=== PATIENT | male | born 1970 | race Caucasian/White ===

== ENCOUNTER 2018-03-14 16:23 | Emergency (ER) | payer OTHER ==
[2018-03-14] MEDS ORDERED: NA CHLORIDE 0.9% 1,000 ML ONE ×2 (16:47→17:14)
--- NOTE | 2018-03-14 16:58 | RAD REPORT ---
EXAM DESCRIPTION: RAD - Chest Single View - 03/14/2018 4:45 pm CLINICAL HISTORY: Hypertension, chest pain. COMPARISON: None. FINDINGS: Portable technique limits examination quality. The lungs are grossly clear. The heart is normal in size. No displaced fractures. IMPRESSION: No acute intrathoracic process suspected.
[2018-03-14 17:00] LABS: Absolute Lymphocytes (CBC) 0.5 K/uL (0.7-4.9); Absolute Monocytes 0.7 K/uL (0.1-1.3); Absolute Neutrophil 12.1 K/uL (1.8-8.0); Basophils % 0.2 % (0-1.3); Eosinophils % 0.4 % (0-4.4); Hematocrit 46.8 % (39.6-49.0); Lymphocytes % 3.7 % (15.3-44.8); MCH 31.5 pg (27.0-35.0); MPV 8.2 fL (7.6-11.3); RBC Red Blood Cell Count 5.09 M/uL (4.33-5.43)
[2018-03-14 17:02] LABS: Protime INR 0.99
[2018-03-14 17:18] LABS: Blood Morphology Comment NOT SEEN (NOT SEEN); Platelet Estimate ADEQ; Potassium 4.3 mEq/L (3.6-5.0); Urine White Blood Cell Casts OK
[2018-03-14 17:25] LABS: Bilirubin Direct 0.1 mg/dL (0-0.2); Bilirubin Total 0.9 mg/dL (0.3-1.2); Protein, Total 8.1 g/dL (6.0-8.3)
--- NOTE | 2018-03-14 17:27 | RAD REPORT ---
EXAM DESCRIPTION: CT - Head Brain Wo Cont - 03/14/2018 5:19 pm CLINICAL HISTORY: Headache, hypertension and weakness. Altered consciousness. COMPARISON: None. TECHNIQUE: All CT scans are performed using dose optimization technique as appropriate and may inclu de automated exposure control or mA/KV adjustment according to patient size. FINDINGS: No intracranial hemorrhage, hydrocephalus or extra-axial fluid collection.No areas of brai n edema or evidence of midline shift. The paranasal sinuses and mastoids are clear. The calvarium is intact. IMPRESSION: No acute intracranial abnormality.
--- NOTE | 2018-03-14 17:58 | EKG ---
Test Date: 2018-03-14 Test Time: 16:45:24 Drug Regulatory Affairs Specialist: ALTHEA MEASUREMENT RESULTS: Intervals: Rate: 98 OK: 150 QRSD: 108 QT: 348 QTc: 444 [place]: P: 47 OK: 150 QRS: 83 T: 39 INTERPRETIVE STATEMENTS: Normal sinus rhythm Normal ECG Electronically Signed On 03-14-18 17:57:21 CDT by Jarred Streeter
--- NOTE | 2018-03-14 18:17 | RAD REPORT ---
EXAM DESCRIPTION: CT - Abdomen Pelvis W Contrast - 03/14/2018 6:08 pm CLINICAL HISTORY: Abdominal pain vomiting and diarrhea COMPARISON: none. TECHNIQUE: Computed axial tomography of the abdomen pelvis was obtained. 100 cc Isovue-300 was admin istered intravenously. Oral contrast was not requested which limits evaluation of bowel. All CT scans are performed using dose optimization technique as appropriate and may include automated exposure control or mA/KV adjustment according to patient size. FINDINGS: The liver has a diminished attenuation attenuation consistent with fatty infiltration. Spleen, pancreas, adrenal and kidneys appear unremarkable. There is no evidence of diverticulitis. Fluid is present within nondilated large and small bowel. The appendix is normal. Postsurgical changes of a ventral hernia repair are seen. A left inguinal hernia contains fat IMPRESSION: Fluid within nondilated large and small bowel may indicate an enteritis
[2018-03-14 18:41] LABS: Barbiturates NEGATIVE; Benzodiazepines NEGATIVE; Cocaine NEGATIVE; METHAMPHETAM NEGATIVE; Opiates NEGATIVE; Phencyclidine NEGATIVE; THC Cannibis NEGATIVE
--- NOTE | 2018-03-14 18:49 | EDPHYS ---
Physician Documentation [facility] Name: Quincy Jackson Age: 47 yrs Sex: Male : 1970 Arrival Date: 03/14/2018 Time: 16:26 Bed 7 Private MD: ED Physician Oleksandr Garcia HPI: 03/14 17:17 This 47 yrs old Male presents to ER via Wheelchair with complaints of jr8 Nausea/Vomiting/Diarrhea. 17:17 The patient presents to the emergency department with nausea, vomiting, diarrhea. jr8 Onset: The symptoms/episode began/occurred acutely, yesterday. Possible causes: unknown. The symptoms are aggravated by nothing. The symptoms are alleviated by nothing. 17:17 Associated signs and symptoms: Pertinent positives: abdominal pain. Severity of jr8 symptoms: At their worst the symptoms were moderate in the emergency department the symptoms are unchanged. The patient has not experienced similar symptoms in the past. The patient has not recently seen a physician. Patient presented to ED with complaints of n/v/d and abdominal cramping x 1 day. Stated that it started while at work. As night progressed become worse. Had syncope twice today. Was brought over to ED because of the syncope and was disoriented. Patient alert to person and place upon arrival with confusion . Historical: - Allergies: 16:38 No Known Allergies; ae1 - Home Meds: 16:38 Amitriptyline Oral [Active]; ae1 16:41 Lisinopril Oral [Active]; ae1 16:42 Trazodone Oral [Active]; ae1 16:53 Cyclobenzaprine Oral [Active]; ae1 17:13 diclofenac sodium 75 mg oral TbEC [Active]; tramadol 50 mg Oral tab [Active]; etodolac jl7 300 mg Oral cap [Active]; - PMHx: 16:38 Hypertension; ae1 16:41 Chronic pain; ae1 - PSHx: 16:41 Hernia repair; ae1 - Immunization history:: Adult Immunizations up to date. - Social history:: Smoking status: Patient uses tobacco products, denies chronic smoking, but will smoke occasionally. ROS: 17:17 Eyes: Negative for injury, pain, redness, and discharge, ENT: Negative for injury, jr8 pain, and discharge, Neck: Negative for injury, pain, and swelling, Cardiovascular: Negative for chest pain, palpitations, and edema, Respiratory: Negative for shortness of breath, cough, wheezing, and pleuritic chest pain, Back: Negative for injury and pain, MS/Extremity: Negative for injury and deformity, Skin: Negative for injury, rash, and discoloration. 17:17 Abdomen/GI: Positive for abdominal pain, nausea, vomiting, and diarrhea, Negative for abdominal distension, anorexia, dysphagia, hematemesis, black/tarry stool, rectal pain, rectal bleeding, bowel incontinence, flatulence. 17:17 Neuro: Positive for altered mental status, weakness, Negative for seizure activity. Exam: 17:17 Eyes: Pupils equal round and reactive to light, extra-ocular motions intact. Lids and jr8 lashes normal. Conjunctiva and sclera are non-icteric and not injected. Cornea within normal limits. Periorbital areas with no swelling, redness, or edema. ENT: Nares patent. No nasal discharge, no septal abnormalities noted. Tympanic membranes are normal and external auditory canals are clear. Oropharynx with no redness, swelling, or masses, exudates, or evidence of obstruction, uvula midline. Mucous membranes moist. Neck: Trachea midline, no thyromegaly or masses palpated, and no cervical lymphadenopathy. Supple, full range of motion without nuchal rigidity, or vertebral point tenderness. No Meningismus. Cardiovascular: Regular rate and rhythm with a normal S1 and S2. No gallops, murmurs, or rubs. Normal PMI, no JVD. No pulse deficits. Respiratory: Lungs have equal breath sounds bilaterally, clear to auscultation and percussion. No rales, rhonchi or wheezes noted. No increased work of breathing, no retractions or nasal flaring. Abdomen/GI: Soft, non-tender, with normal bowel sounds. No distension or tympany. No guarding or rebound. No evidence of tenderness throughout. Back: No spinal tenderness. No costovertebral tenderness. Full range of motion. Skin: Warm, dry with normal turgor. Normal color with no rashes, no lesions, and no evidence of cellulitis. MS/ Extremity: Pulses equal, no cyanosis. Neurovascular intact. Full, normal range of motion. 17:17 Neuro: Orientation: to person, place, Mentation: confused, Memory: immediate memory is intact, remote memory is intact. recent memory is impaired, Cranial nerves: CN I not tested, CN II- XII are normal as tested, visual vance are intact. extraocular movements are intact, Facial palsy and sensory deficits are absent. Nystagmus is absent. Speech is clear and appropriate. Tongue strength is normal, Cerebellar function: normal finger to nose testing, Motor: moves all fours, strength is 5/5 in all extremities, Sensation: no obvious gross deficits, seizure activity, is not displayed by the patient, Abnormal movements: there are no abnormal movements. Vital Signs: 16:27 BP 123 / 89; Pulse 101; Resp 19; Temp 98.8; Pulse Ox 94% on R/A; Weight 113.4 kg (R); ae1 16:52 BP 124 / 72; Pulse 97; Resp 23; Pulse Ox 95% on 2 lpm NC; ae1 17:12 BP 121 / 79; Pulse 96; Resp 19; Pulse Ox 96% on 2 lpm NC; ae1 [place] Coma Score: 17:17 Eye Response: spontaneous(4). Verbal Response: confused(4). Motor Response: obeys jr8 commands(6). Total: 14. MDM: 16:27 Patient medically screened. jr8 17:17 ED course: After reevaluation of patient just now. Patient is doing better. Remembers jr8 all past events. Unknown as of yet what caused delirium/confusion. stated that she found him in the shower on the floor covered in feces and vomit . 18:49 Data reviewed: vital signs, nurses notes. Data interpreted: Pulse oximetry: on room air snw is 96 %. Interpretation: acceptable. Counseling: I had a detailed discussion with the patient and/or guardian regarding: the historical points, exam findings, and any diagnostic results supporting the discharge/admit diagnosis, lab results, radiology results, the need for outpatient follow up, to return to the emergency department if symptoms worsen or persist or if there are any questions or concerns that arise at home. Special discussion: Based on the patient's Hx, exam, and Dx evaluation, there is no indication for emergent surgery or inpatient Tx. It is understood by the patient/guardian that if the Sx's persist or worsen they need to return immediately for re-evaluation. I have referred the patient to see his PCP for further evaluation of high blood pressure. Based on the history and exam findings, there is no indication for further emergent testing or inpatient evaluation. I discussed with the patient/guardian the need to see the primary care provider for further evaluation of the symptoms. 03/14 16:30 Order name: glucometer results - FOR PT WITH NO ID; Complete Time: 16:55 jl7 03/14 16:33 Order name: Basic Metabolic Panel; Complete Time: 17:27 03/14 16:33 Order name: BNP; Complete Time: 17:32 03/14 16:33 Order name: CBC with Diff; Complete Time: 17:23 03/14 16:33 Order name: CPK; Complete Time: 17:27 03/14 16:33 Order name: LFT's; Complete Time: 17:27 03/14 16:33 Order name: Magnesium; Complete Time: 17:27 03/14 16:33 Order name: PT-INR; Complete Time: 17:16 03/14 16:33 Order name: Troponin (emerg Dept Use Only); Complete Time: 17:27 03/14 16:33 Order name: XRAY Chest (1 view); Complete Time: 17:03 03/14 16:33 Order name: CT Head Brain wo Cont; Complete Time: 17:27 03/14 16:33 Order name: UDS; Complete Time: 18:45 03/14 17:01 Order name: CBC Smear Scan; Complete Time: 17:23 EDMS 03/14 18:32 Order name: Urine Dipstick--Ancillary (enter results); Complete Time: 07:45 mw2 03/14 16:33 Order name: EKG; Complete Time: 16:33 03/14 16:33 Order name: Cardiac monitoring; Complete Time: 16:46 03/14 16:33 Order name: EKG - Nurse/Tech; Complete Time: 16:46 03/14 16:33 Order name: IV Saline Lock; Complete Time: 16:46 03/14 16:33 Order name: Labs collected and sent; Complete Time: 16:46 03/14 16:33 Order name: O2 Per Protocol; Complete Time: 16:46 03/14 16:33 Order name: O2 Sat Monitoring; Complete Time: 16:46 03/14 16:33 Order name: Urine Dipstick-Ancillary (obtain specimen); Complete Time: 18:50 jr8 03/14 17:32 Order name: CT Abd/Pelvis - W/Contrast; Complete Time: 18:45 8 Administered Medications: 16:52 Drug: NS 0.9% 1000 ml Route: IV; Rate: 1000 ml; Site: right antecubital; ae1 19:54 Follow up: IV Status: Completed infusion; IV Intake: 1000ml bp 17:56 Drug: NS 0.9% 1000 ml Route: IV; Rate: 1 bolus; Site: right antecubital; ae1 19:54 Follow up: IV Status: Completed infusion; IV Intake: 1000ml bp Point of Care Testing: Blood Glucose: 16:27 Blood Glucose: 91 mg/dL; ae1 Ranges: Critical Glucose Levels:Adult <50 mg/dl or >400 mg/dl <40 mg/dl or >180 mg/dl Disposition: 03/14/18 18:47 Discharged to Home. Impression: Noninfective gastroenteritis and colitis, unspecified. - Condition is Stable. - Discharge Instructions: Food Choices to Help Relieve Diarrhea, Adult, Viral Gastroenteritis. - Prescriptions for Zofran 4 mg Oral Tablet - take 1 tablet by ORAL route 3-4 times daily As needed; 20 tablet. Cipro 500 mg Oral Tablet - take 1 tablet by ORAL route every 12 hours for 7 days; 14 tablet. - Work release form, Medication Reconciliation Form, Thank You Letter, Antibiotic Education, Prescription Opioid Use form. - Follow up: Private Physician; When: Tomorrow; Reason: Recheck today's complaints, Continuance of care, Re-evaluation by your physician. Follow up: Emergency Department; When: As needed; Reason: Worsening of condition. Addendum: 03/16/2018 07:04 Co-signature as Attending Physician, Oleksandr Garcia MD I agree with the assessment and w a plan of care. Signatures: Dispatcher [employer] EDDaysi Michel FNP-C TUBER HELPER-Csnw Ricci Stearns PA PA jr8 Mundo Sawant RN RN ae1 Sandra Small RN RN jl7 Oleksandr Garcia MD MD wa Peltier, Brian RN RN bp Corrections: (The following items were deleted from the chart) 03/14 17:19 17:17 This 47 yrs old Male presents to ER via Wheelchair with complaints of jr8 Altered Mental Status, General Weakness. jr8 19:54 18:47 03/14/2018 18:47 Discharged to Home. Impression: Noninfective gastroenteritis and bp colitis, unspecified. Condition is Stable. Forms are Medication Reconciliation Form, Thank You Letter, Antibiotic Education, Prescription Opioid Use. Follow up: Private Physician; When: Tomorrow; Reason: Recheck today's complaints, Continuance of care, Re-evaluation by your physician. Follow up: Emergency Department; When: As needed; Reason: Worsening of condition. snw
--- NOTE | 2018-03-14 19:55 | ER ---
Nurse's Notes [facility] Name: Quincy Jackson Age: 47 yrs Sex: Male : 1970 Arrival Date: 03/14/2018 Time: 16:26 Bed 7 Private MD: Diagnosis: Noninfective gastroenteritis and colitis, unspecified Presentation: 03/14 16:35 Presenting complaint: states: parked in ambulance bay stating her is ae1 too weak to get out of the car, he has had diarrhea and vomiting "all night". Patient was assisted onto wheelchair and transported to exam room. Transition of care: patient was not received from another setting of care. Onset of symptoms is unknown. Initial Sepsis Screen: Does the patient meet any 2 criteria? RR > 20 per min. Altered Mental Status. Care prior to arrival: None. 16:35 Method Of Arrival: Wheelchair ae1 16:35 Acuity: MARCUS 2 ae1 19:53 Initial Sepsis Screen: Does the patient have a suspected source of infection? No. bp Patient's initial sepsis screen is negative. Triage Assessment: 16:39 General: Appears uncomfortable. ae1 16:43 General: Appears obese, Behavior is cooperative, crying. General: Appears Behavior is. ae1 Pain: Complains of pain in abdomen. EENT: No signs and/or symptoms were reported regarding the EENT system. Neuro: Level of Consciousness is awake, obeys commands, confused, lethargic, Oriented to person. Cardiovascular: Heart tones S1 S2 present Patient's skin is warm and dry. Respiratory: Airway is patent Respiratory effort is even, unlabored, Respiratory pattern is regular, symmetrical, Breath sounds are clear bilaterally. GI: Abdomen is round distended, obese, Bowel sounds present X 4 quads. firm and tender to the lower right quadrant. Reports diarrhea, nausea, vomiting. : No signs and/or symptoms were reported regarding the genitourinary system. Derm: Skin is pink, warm \\T\\ dry. Musculoskeletal: Reports Severe generalized weakness. Historical: - Allergies: 16:38 No Known Allergies; ae1 - Home Meds: 16:38 Amitriptyline Oral [Active]; ae1 16:41 Lisinopril Oral [Active]; ae1 16:42 Trazodone Oral [Active]; ae1 16:53 Cyclobenzaprine Oral [Active]; ae1 17:13 diclofenac sodium 75 mg oral TbEC [Active]; tramadol 50 mg Oral tab [Active]; etodolac jl7 300 mg Oral cap [Active]; - PMHx: 16:38 Hypertension; ae1 16:41 Chronic pain; ae1 - PSHx: 16:41 Hernia repair; ae1 - Immunization history:: Adult Immunizations up to date. - Social history:: Smoking status: Patient uses tobacco products, denies chronic smoking, but will smoke occasionally. Screenin:41 Fall Risk Fall in past 12 months (25 points). No secondary diagnosis (0 pts). IV access ae1 (20 points). Ambulatory Aid- None/Bed Rest/Nurse Assist (0 pts). Gait- Normal/Bed Rest/Wheelchair (0 pts) Mental Status- Overestimates/Forgets Limitations (15 pts.). 16:46 Abuse screen: Denies threats or abuse. Nutritional screening: No deficits noted. ae1 Tuberculosis screening: No symptoms or risk factors identified. Assessment: 17:11 Reassessment: Patient states feeling better. Patient states symptoms have improved. ae1 Neuro: Level of Consciousness is awake, alert, obeys commands, Patient appears less confused and more aware of surroundings. . 18:15 Reassessment: Patient assisted onto bedside commode to have BM, Patient passed yellow ae1 liquid BM. 19:11 Reassessment: Patient appears in no apparent distress at this time. Patient and/or ae1 family updated on plan of care and expected duration. Pain level reassessed. Patient states feeling better. Patient states symptoms have improved. Neuro: Level of Consciousness is awake, alert, obeys commands, Oriented to person, place, time, situation. 19:52 Reassessment: PT D/C HOME AMBULATORY WITH FAMILY AFTER IVF, DX WITH GASTROENTERITIS AND bp COLITIS. Vital Signs: 16:27 BP 123 / 89; Pulse 101; Resp 19; Temp 98.8; Pulse Ox 94% on R/A; Weight 113.4 kg (R); ae1 16:52 BP 124 / 72; Pulse 97; Resp 23; Pulse Ox 95% on 2 lpm NC; ae1 17:12 BP 121 / 79; Pulse 96; Resp 19; Pulse Ox 96% on 2 lpm NC; ae1 [place] Coma Score: 17:17 Eye Response: spontaneous(4). Verbal Response: confused(4). Motor Response: obeys jr8 commands(6). Total: 14. ED Course: 16:26 Patient arrived in ED. iw 16:27 Mundo Sawant, RN is Primary Nurse. ae1 16:27 Ricci Stearns PA is PHCP. jr8 16:27 Oleksandr Garcia MD is Attending Physician. jr8 16:37 Triage completed. ae1 16:38 Placed in gown. Bed in low position. Call light in reach. Side rails up X2. Adult w/ ae1 patient. potline monitor on. Pulse ox on. NIBP on. Warm blanket given. 16:39 Arm band placed on right wrist. ae1 16:44 X-ray completed. Portable x-ray completed in exam room. Patient tolerated procedure ml well. 16:46 XRAY Chest (1 view) In Process Unspecified. EDMS 16:48 Initial lab(s) drawn, by me, sent to lab. EKG done, by field service tech. reviewed by Ricci BERRIOS. Inserted saline lock: 20 gauge in right antecubital area, using aseptic technique. Blood collected. 16:59 EKG done, by field service tech. reviewed by Ricci BERRIOS. at1 17:[address] nj 17:18 CT completed. Patient tolerated procedure well. Patient moved back from CT. nj 17:19 CT Head Brain wo Cont In Process Unspecified. EDMS 17:43 PHCP role handed off by Ricci Stearns PA snw 17:43 Daysi Issa FNP-C is PHCP. snw 18:[address] via stretcher. vm2 18:08 CT Abd/Pelvis - W/Contrast In Process Unspecified. EDMS 19:02 No provider procedures requiring assistance completed. jl7 19:45 Primary Nurse role handed off by Mundo Sawant RN rg2 19:52 Mauro Mccormick, DAVID is Primary Nurse. bp 19:52 IV discontinued, intact, bleeding controlled, No redness/swelling at site. Pressure bp dressing applied. Administered Medications: 16:52 Drug: NS 0.9% 1000 ml Route: IV; Rate: 1000 ml; Site: right antecubital; ae1 19:54 Follow up: IV Status: Completed infusion; IV Intake: 1000ml bp 17:56 Drug: NS 0.9% 1000 ml Route: IV; Rate: 1 bolus; Site: right antecubital; ae1 19:54 Follow up: IV Status: Completed infusion; IV Intake: 1000ml bp Point of Care Testing: Blood Glucose: 16:27 Blood Glucose: 91 mg/dL; ae1 Ranges: Intake: 19:54 IV: 1000ml; Total: 1000ml. bp 19:54 IV: 1000ml; Total: 2000ml. bp Outcome: 18:47 Discharge ordered by . mariaa 19:02 Discharged to home ambulatory, with family. jl7 19:02 Condition: stable 19:02 Discharge instructions given to patient, family, Instructed on discharge instructions, follow up and referral plans. medication usage, Demonstrated understanding of instructions, follow-up care, medications, Prescriptions given X 2. 19:54 Patient left the ED. bp Signatures: Dispatcher [employer] EDMS Neymar Venegas jb1 Luana Ovalles rg2 Daysi Issa, CENTRAL OFFICE TECHNICIAN-C CENTRAL OFFICE TECHNICIAN-Csnw Ambar Maloney, RN RN Lauren Villar Josh, PA PA jr8 Deirdre turner, senior account clerk EKG Tat1 Mundo Sawant, DAVID RN ae1 Lukas Beatty Jahala, RN RN jl7 Kath Oconnor 2 Mauro Mccormick RN RN bp
[2018-03-14 22:25] LABS: Urine Blood NEGATIVE (NEG); Urine Glucose NEGATIVE (NEG); Urine Protein NEGATIVE (NEG); Urine Specific Gravity 1.015 (1.005-1.030)
== END 2018-03-14 19:54 | disposition home or self-care (01) ==
LOC: ER 16:23
DX: K52.9 Noninfective gastroenteritis and colitis, unspecified (principal); I10 Essential (primary) hypertension; F17.210 Nicotine dependence, cigarettes, uncomplicated
CPT/HCPCS: 36415; 70450; 71045; 74177; 80048; 80076; 80307; 81003; 82550; 82962; 83735; 83880; 84484; 85025; 85610; 93005; 96360; 96361; 99285; J7030; Q9967